=== PATIENT | female | born 1985 | race Caucasian/White ===

== ENCOUNTER 2024-02-03 21:49 | Inpatient (IN) | payer MEDICAID, OTHER ==
[~2024-02-03] VITALS: Ht 162.6 cm; Wt 100.9 kg
[2024-02-03 22:35] LABS: COVID AG,FIA SOURCE NASAL SWAB
[2024-02-03 22:49] LABS: BASOPHILS % (AUTO) 0.9 % (0.0-2.0); EOSINOPHILS % (AUTO) 1.9 % (1.0-6.0); HEMATOCRIT 38.1 % (36-46); LYMPHOCYTES # (AUTO) 3.4 K/uL (1.0-4.8); LYMPHOCYTES % (AUTO) 35.3 % (22.0-44.0); MEAN CORPUSCULAR HEMOGLOBIN 29.7 pg (26.0-34.0); MEAN CORPUSCULAR HGB CONC 34.1 G/dL (31.0-37.0); MEAN CORPUSCULAR VOLUME 87 fL (80-100); MONOCYTES # (AUTO) 0.8 K/uL (0.1-1.0); MONOCYTES % (AUTO) 8.2 % (2.0-9.0); NEUTROPHILS # (AUTO) 5.2 K/uL (1.8-7.7); NEUTROPHILS % (AUTO) 53.7 % (40.0-70.0); PLATELET COUNT (AUTO) 361 K/uL (150-450); RED BLOOD CELL COUNT(AUTO) 4.37 MIL/uL (4.00-5.20); RED CELL DISTRIBUTION WIDTH 12.9 % (11.5-14.5); WHITE BLOOD COUNT (AUTO) 9.6 K/uL (4.5-11.0)
[2024-02-03 22:53] LABS: SARS-COV2 (COVID) ANTIGEN,FIA Negative (Negative)
[2024-02-03 22:58] LABS: ANION GAP 6 mmol/L (8-16); CALCIUM, TOTAL 9.8 mg/dL (8.8-10.5); CARBON DIOXIDE 29 mmol/L (22-29); CHLORIDE 104 mmol/L (98-107); CREATININE 0.78 mg/dL (0.60-1.30); GLOMERULAR FILTR. RATE CALC > 60 mL/min (>60); GLUCOSE,RANDOM 104 mg/dL (70-110); POTASSIUM 3.7 mmol/L (3.5-5.1); SODIUM SERUM 139 mmol/L (136-145); UREA NITROGEN, BLOOD 10 mg/dL (7-18)
[2024-02-03 23:09] LABS: ALCOHOL, BLOOD (SERUM) < 3 mg/dL (0-10)
[2024-02-04 01:29] LABS: PH,URINE DRUG SCREEN 6.5 (5.0-8.0)
[2024-02-04 01:36] LABS: ALCOHOL, URINE DRUG SCREEN NEGATIVE (NEGATIVE); AMPHET/METH SCREEN,URINE NEGATIVE (NEGATIVE); BARBITURATE SCREEN, URINE NEGATIVE (NEGATIVE); BENZODIAZEPINES SCREEN,URINE NEGATIVE (NEGATIVE); CANNABINOID SCREEN,URINE NEGATIVE (NEGATIVE); COCAINE SCREEN,URINE NEGATIVE (NEGATIVE); METHADONE SCREEN, URINE NEGATIVE (NEGATIVE); OPIATE SCREEN,URINE NEGATIVE (NEGATIVE); PHENCYCLIDINE SCREEN,URINE NEGATIVE (NEGATIVE)
[2024-02-04] MEDS: LORazepam 2 MG TABLET PO PRN (22:14)
[2024-02-04] MEDS: HALOPERIDOL 5 MG TABLET PO PRN (22:14)
[2024-02-05 03:45] VITALS: BP 126/81; PULSE 85; RESP 18; TEMP 98.6; O2SAT 96
[2024-02-05] MEDS ORDERED: NICOTINE 14 MG/24 HOUR PATCH TD PRN (07:15)
[2024-02-05] MEDS ORDERED: IBUPROFEN 400 MG TABLET PO PRN (07:15)
[2024-02-05] MEDS ORDERED: LOPERAMIDE HCL 2 MG CAPSULE PO PRN (07:15)
[2024-02-05] MEDS ORDERED: DOCUSATE SODIUM 100 MG CAPSULE PO PRN (07:15)
[2024-02-05] MEDS ORDERED: ONDANSETRON HCL 4 MG TABLET PO PRN (07:15)
[2024-02-05] MEDS ORDERED: ACETAMINOPHEN 325 MG TABLET PO PRN (07:15)
[2024-02-05] MEDS ORDERED: ALBUTEROL SULFATE HFA 90 MCG/PUFF 8 GM INHALER IH PRN (07:15)
[2024-02-05] MEDS ORDERED: MAG HYDROX/ALUMINUM HYD/SIMETH ES 30 ML SUSPENSION UDCUP PO PRN (07:15)
[2024-02-05] MEDS ORDERED: MAGNESIUM HYDROXIDE SUSPENSION 30 ML UDCUP PO PRN (07:15)
[2024-02-05] MEDS ORDERED: CloNIDine HCL 0.1 MG TABLET PO PRN (07:15)
[2024-02-05] MEDS ORDERED: GuaiFENesin/D-METHORPHAN [SUGAR-FREE] 200-20MG/10 ML SYRUP UDCUP PO PRN (07:15)
[2024-02-05] MEDS ORDERED: PETROLATUM,WHITE 28 GM JELLY TP PRN (07:15)
[2024-02-05] MEDS: NYSTATIN/TRIAMCINOLONE 15 GM CREAM TP SCH (09:00)
[2024-02-05 09:23] VITALS: BP 91/49; PULSE 106; RESP 18; TEMP 97.8; O2SAT 94
[2024-02-05] MEDS: RisperiDONE 2 MG TABLET PO SCH (17:51)
[2024-02-05 20:49] VITALS: BP 132/91; PULSE 111; RESP 18; TEMP 98.1; O2SAT 97
[2024-02-05] MEDS: QUEtiapine FUMARATE 200 MG TABLET PO SCH (20:54)
[2024-02-06 08:24] LABS: APPEARANCE,URINE TURBID (CLEAR); BILIRUBIN,URINE NEGATIVE (NEGATIVE); COLOR,URINE ORANGE (YELLOW); GLUCOSE, URINE (UA) NEGATIVE (NEGATIVE); KETONES,URINE NEGATIVE (NEGATIVE); LEUKOCYTE ESTERASE ,URINE LARGE (NEGATIVE); NITRATE,URINE NEGATIVE (NEGATIVE); OCCULT BLOOD,URINE SMALL (NEGATIVE); PROTEIN,URINE TRACE mg/dL (NEGATIVE); SPECIFIC GRAVITIY, URINE 1.019 (1.003-1.030); UROBILINOGEN,URINE <=1.0 mg/dL (<=1.0)
[2024-02-06 08:28] VITALS: BP 107/52; PULSE 63; RESP 18; TEMP 98; O2SAT 96
[2024-02-06 08:30] LABS: ALCOHOL, URINE DRUG SCREEN NEGATIVE (NEGATIVE); AMPHET/METH SCREEN,URINE NEGATIVE (NEGATIVE); BARBITURATE SCREEN, URINE NEGATIVE (NEGATIVE); BENZODIAZEPINES SCREEN,URINE NEGATIVE (NEGATIVE); CANNABINOID SCREEN,URINE NEGATIVE (NEGATIVE); COCAINE SCREEN,URINE NEGATIVE (NEGATIVE); METHADONE SCREEN, URINE NEGATIVE (NEGATIVE); OPIATE SCREEN,URINE NEGATIVE (NEGATIVE); PHENCYCLIDINE SCREEN,URINE NEGATIVE (NEGATIVE)
[2024-02-06 08:30] LABS: HEMOGLOBIN A1C 5.5 % (3.8-5.6)
[2024-02-06 08:50] LABS: CHOL/HDL RATIO 4.5 (3.9-5.7); THYROID STIMULATING HORMONE 1.39 uIU/mL (0.36-3.74)
[2024-02-06 09:04] LABS: AMORPHOUS SEDIMENT,UR Many /LPF (None Seen); BACTERIA,URINE Many /HPF (None Seen); RBC,URINE 0-2 /HPF (0-2); SQUAMOUS EPITHELIAL CELL,UR Moderate /LPF (None Seen)
[2024-02-06] MEDS: CEPHALEXIN MONOHYDRATE 500 MG CAPSULE PO SCH (17:46)
[2024-02-06 20:13] VITALS: BP 126/71; PULSE 99; RESP 19; TEMP 97.9; O2SAT 97
[2024-02-07] MEDS: ZOLPIDEM TARTRATE 10 MG TABLET PO PRN (00:05)
[2024-02-07 08:33] VITALS: BP 113/70; PULSE 85; RESP 19; TEMP 97.9; O2SAT 97
[2024-02-07 20:28] VITALS: BP 123/77; PULSE 106; RESP 15; TEMP 98.1; O2SAT 95
[2024-02-08 08:08] VITALS: BP 137/82; PULSE 94; RESP 14; TEMP 97; O2SAT 97
[2024-02-08] MEDS ORDERED: RISP-32 PO (10:05)
[2024-02-08] MEDS ORDERED: QUET200T PO (10:07)
[2024-02-08] MEDS ORDERED: BENZOCAINE/MENTHOL/ZINC CL 20% 11.9 GM GEL TP PRN (11:00)
== END 2024-02-08 12:45 | disposition home or self-care (01) | DRG 750 ==
LOC: EMS 21:49 → B2S 02-04 18:20
PROVIDERS: ADMIT Psychiatry & Neurology Child & Adolescent Psychiatry; ATTEND Psychiatry & Neurology Child & Adolescent Psychiatry
DX: F20.9 Schizophrenia, unspecified (principal); R45.851 Suicidal ideations; F41.9 Anxiety disorder, unspecified; Z20.822 Contact with and (suspected) exposure to COVID-19; G47.00 Insomnia, unspecified; R00.0 Tachycardia, unspecified; E66.9 Obesity, unspecified; Z91.199 Patient's noncompliance with other medical treatment and regimen due to unspecified reason; Z88.8 Allergy status to other drugs, medicaments and biological substances; Z68.38 Body mass index [BMI] 38.0-38.9, adult
CPT/HCPCS: 80048; 80061; 80307; 81001; 83036; 84443; 84703; 85025; 87086; 87186; G0480

== ENCOUNTER 2024-04-03 12:03 | Inpatient (IN) | payer MEDICAID, OTHER ==
[~2024-04-03] VITALS: Ht 162.6 cm; Wt 98.6 kg
[~2024-04-03 12:03] MED LIST: QUET200T PO; RISP-32 PO
[2024-04-03 13:30] LABS: BASOPHILS % (AUTO) 0.4 % (0.0-2.0); EOSINOPHILS % (AUTO) 1.1 % (1.0-6.0); HEMATOCRIT 36.9 % (36-46); HEMOGLOBIN 12.3 g/dL (12.0-16.0); LYMPHOCYTES # (AUTO) 2.4 K/uL (1.0-4.8); LYMPHOCYTES % (AUTO) 22.7 % (22.0-44.0); MEAN CORPUSCULAR HEMOGLOBIN 29.2 pg (26.0-34.0); MEAN CORPUSCULAR HGB CONC 33.4 G/dL (31.0-37.0); MEAN CORPUSCULAR VOLUME 88 fL (80-100); MONOCYTES # (AUTO) 0.9 K/uL (0.1-1.0); MONOCYTES % (AUTO) 8.1 % (2.0-9.0); NEUTROPHILS # (AUTO) 7.1 K/uL (1.8-7.7); NEUTROPHILS % (AUTO) 67.7 % (40.0-70.0); PLATELET COUNT (AUTO) 343 K/uL (150-450); RED BLOOD CELL COUNT(AUTO) 4.21 MIL/uL (4.00-5.20); RED CELL DISTRIBUTION WIDTH 14.3 % (11.5-14.5); WHITE BLOOD COUNT (AUTO) 10.5 K/uL (4.5-11.0)
[2024-04-03 13:52] LABS: ANION GAP 8 mmol/L (8-16); CALCIUM, TOTAL 8.8 mg/dL (8.8-10.5); CARBON DIOXIDE 29 mmol/L (22-29); CHLORIDE 104 mmol/L (98-107); CREATININE 0.83 mg/dL (0.60-1.30); GLOMERULAR FILTR. RATE CALC > 60 mL/min (>60); GLUCOSE,RANDOM 104 mg/dL (70-110); SODIUM SERUM 141 mmol/L (136-145); UREA NITROGEN, BLOOD 3 mg/dL (7-18)
[2024-04-03 13:54] LABS: ALCOHOL, BLOOD (SERUM) < 3 mg/dL (0-10)
[2024-04-03] MEDS ORDERED: LORazepam 2 MG TABLET PO PRN (14:00)
[2024-04-03] MEDS ORDERED: ZOLPIDEM TARTRATE 10 MG TABLET PO PRN (14:00)
[2024-04-03] MEDS ORDERED: OLANZapine 5 MG RAPDIS TABLET PO PRN (14:00)
[2024-04-03 14:36] LABS: COVID AG,FIA SOURCE NASAL SWAB
[2024-04-03 15:04] LABS: SARS-COV2 (COVID) ANTIGEN,FIA Negative (Negative)
[2024-04-03 15:05] LABS: APPEARANCE,URINE CLEAR (CLEAR); BILIRUBIN,URINE NEGATIVE (NEGATIVE); COLOR,URINE YELLOW (YELLOW); GLUCOSE, URINE (UA) NEGATIVE (NEGATIVE); KETONES,URINE NEGATIVE (NEGATIVE); LEUKOCYTE ESTERASE ,URINE SMALL (NEGATIVE); NITRATE,URINE NEGATIVE (NEGATIVE); OCCULT BLOOD,URINE SMALL (NEGATIVE); PROTEIN,URINE TRACE mg/dL (NEGATIVE); SPECIFIC GRAVITIY, URINE 1.014 (1.003-1.030); UROBILINOGEN,URINE <=1.0 mg/dL (<=1.0)
[2024-04-03 15:13] LABS: ALCOHOL, URINE DRUG SCREEN NEGATIVE (NEGATIVE); AMPHET/METH SCREEN,URINE NEGATIVE (NEGATIVE); BARBITURATE SCREEN, URINE NEGATIVE (NEGATIVE); BENZODIAZEPINES SCREEN,URINE NEGATIVE (NEGATIVE); CANNABINOID SCREEN,URINE NEGATIVE (NEGATIVE); COCAINE SCREEN,URINE NEGATIVE (NEGATIVE); METHADONE SCREEN, URINE NEGATIVE (NEGATIVE); OPIATE SCREEN,URINE NEGATIVE (NEGATIVE); PHENCYCLIDINE SCREEN,URINE NEGATIVE (NEGATIVE)
[2024-04-03 15:33] LABS: BACTERIA,URINE Few /HPF (None Seen); RBC,URINE 0-2 /HPF (0-2); SQUAMOUS EPITHELIAL CELL,UR Moderate /LPF (None Seen)
[2024-04-03] MEDS ORDERED: BENZOCAINE/MENTHOL LOZENGE PO PRN (17:00)
[2024-04-03] MEDS ORDERED: DOCUSATE SODIUM 100 MG CAPSULE PO PRN (17:00)
[2024-04-03] MEDS ORDERED: IBUPROFEN 600 MG TABLET PO PRN (17:00)
[2024-04-03] MEDS ORDERED: MAGNESIUM HYDROXIDE SUSPENSION 30 ML UDCUP PO PRN (17:00)
[2024-04-03] MEDS ORDERED: BACITRACIN 28 GM OINTMENT TP PRN (17:00)
[2024-04-03] MEDS ORDERED: LOPERAMIDE HCL 2 MG CAPSULE PO PRN (17:00)
[2024-04-03] MEDS ORDERED: ACETAMINOPHEN 325 MG TABLET PO PRN (17:00)
[2024-04-03] MEDS ORDERED: CloNIDine HCL 0.1 MG TABLET PO PRN (17:00)
[2024-04-03] MEDS ORDERED: PETROLATUM,WHITE 28 GM JELLY TP PRN (17:00)
[2024-04-03] MEDS ORDERED: ONDANSETRON HCL 4 MG TABLET PO PRN (17:00)
[2024-04-03] MEDS: NYSTATIN 30 GM CREAM TP SCH (17:00)
[2024-04-03] MEDS ORDERED: ALBUTEROL SULFATE HFA 90 MCG/PUFF 8 GM INHALER IH PRN (17:00)
[2024-04-03] MEDS ORDERED: MAG HYDROX/ALUMINUM HYD/SIMETH ES 30 ML SUSPENSION UDCUP PO PRN (17:00)
[2024-04-03] MEDS ORDERED: OMEPRAZOLE 20 MG CAPSULE PO PRN (17:00)
[2024-04-03 17:05] VITALS: BP 131/80; PULSE 93; RESP 16; TEMP 98.3; O2SAT 98
[2024-04-03 20:59] VITALS: BP 115/72; PULSE 92; RESP 16; TEMP 97.7; O2SAT 98
[2024-04-04 08:47] VITALS: BP 125/73; PULSE 98; RESP 17; TEMP 97.1; O2SAT 96
[2024-04-04] MEDS: NITROFURANTOIN MONOHYD/M-CRYST 100 MG CAPSULE [MACROBID] PO SCH (10:44)
[2024-04-04] MEDS: NYSTATIN 30 GM CREAM TP SCH (10:44)
[2024-04-04 20:24] VITALS: BP 132/96; PULSE 95; RESP 18; TEMP 97.4; O2SAT 95
[2024-04-05] MEDS: DIVALPROEX SODIUM 500 MG DR TABLET PO SCH (08:56)
[2024-04-05] MEDS: RisperiDONE 3 MG TABLET PO SCH (08:56)
[2024-04-05] MEDS: LITHIUM CARBONATE 300 MG CAPSULE PO SCH (08:56)
[2024-04-05 09:50] VITALS: BP 139/81; RESP 16; TEMP 97.3; O2SAT 97
[2024-04-05 20:18] VITALS: BP 129/83; PULSE 60; RESP 16; TEMP 97.9; O2SAT 97
[2024-04-06 08:13] VITALS: BP 120/100; PULSE 78; RESP 18; TEMP 97.8; O2SAT 100
[2024-04-06 20:00] VITALS: BP 124/80; PULSE 123; RESP 17; TEMP 98.4; O2SAT 98
[2024-04-07 12:15] VITALS: BP 130/80; PULSE 77; RESP 18; TEMP 98.3; O2SAT 100
[2024-04-07] MEDS ORDERED: NITR-75 PO (14:15)
[2024-04-07] MEDS ORDERED: RISP3TAB77 PO (14:16)
[2024-04-07] MEDS ORDERED: LITH300C3 PO (14:16)
[2024-04-07] MEDS ORDERED: DIVA-112 PO (14:17)
== END 2024-04-07 16:00 | disposition home or self-care (01) | DRG 750 ==
LOC: EMS 12:03 → B2S 14:35 → EMS 16:17 → B2S 04-04 22:13
PROVIDERS: ADMIT Psychiatry & Neurology Psychiatry; ATTEND Psychiatry & Neurology Psychiatry
DX: F20.9 Schizophrenia, unspecified (principal); E66.9 Obesity, unspecified; F41.9 Anxiety disorder, unspecified; Z20.822 Contact with and (suspected) exposure to COVID-19; K59.00 Constipation, unspecified; G47.00 Insomnia, unspecified; N39.0 Urinary tract infection, site not specified; Z68.37 Body mass index [BMI] 37.0-37.9, adult
CPT/HCPCS: 80048; 80307; 81001; 85025; 99285; G0480

== ENCOUNTER 2024-04-28 15:28 | Inpatient (IN) | payer MEDICAID, OTHER ==
[~2024-04-28] VITALS: Ht 162.6 cm; Wt 73.6 kg
[~2024-04-28 15:28] MED LIST changes: +DIVA-112 PO; +LITH300C3 PO; +NITR-75 PO; -QUET200T PO; -RISP-32 PO; +RISP3TAB77 PO
[2024-04-28 16:04] LABS: BASOPHILS % (AUTO) 0.5 % (0.0-2.0); EOSINOPHILS % (AUTO) 0.3 % (1.0-6.0); HEMATOCRIT 40.8 % (36-46); HEMOGLOBIN 13.8 g/dL (12.0-16.0); LYMPHOCYTES # (AUTO) 1.7 K/uL (1.0-4.8); LYMPHOCYTES % (AUTO) 19.4 % (22.0-44.0); MEAN CORPUSCULAR HEMOGLOBIN 29.2 pg (26.0-34.0); MEAN CORPUSCULAR HGB CONC 33.9 G/dL (31.0-37.0); MEAN CORPUSCULAR VOLUME 86 fL (80-100); MONOCYTES # (AUTO) 1.2 K/uL (0.1-1.0); NEUTROPHILS # (AUTO) 5.8 K/uL (1.8-7.7); NEUTROPHILS % (AUTO) 65.8 % (40.0-70.0); PLATELET COUNT (AUTO) 334 K/uL (150-450); RED BLOOD CELL COUNT(AUTO) 4.74 MIL/uL (4.00-5.20); RED CELL DISTRIBUTION WIDTH 14.2 % (11.5-14.5); WHITE BLOOD COUNT (AUTO) 8.8 K/uL (4.5-11.0)
[2024-04-28 16:13] LABS: ANION GAP 12 mmol/L (8-16); CALCIUM, TOTAL 9.1 mg/dL (8.8-10.5); CARBON DIOXIDE 24 mmol/L (22-29); CHLORIDE 100 mmol/L (98-107); CREATININE 0.73 mg/dL (0.60-1.30); GLOMERULAR FILTR. RATE CALC > 60 mL/min (>60); GLUCOSE,RANDOM 97 mg/dL (70-110); SODIUM SERUM 136 mmol/L (136-145); UREA NITROGEN, BLOOD 7 mg/dL (7-18)
[2024-04-28] MEDS: OLANZapine 5 MG TABLET PO ONE (16:15)
[2024-04-28 16:21] LABS: ALCOHOL, BLOOD (SERUM) < 3 mg/dL (0-10)
[2024-04-28 20:03] LABS: COVID AG,FIA SOURCE NASAL SWAB
[2024-04-28] MEDS: ZOLPIDEM TARTRATE 10 MG TABLET PO PRN (20:51)
[2024-04-28] MEDS: OLANZapine 5 MG RAPDIS TABLET PO PRN (20:51)
[2024-04-28] MEDS: LORazepam 2 MG TABLET PO PRN (20:51)
[2024-04-28 21:04] LABS: SARS-COV2 (COVID) ANTIGEN,FIA Positive (Negative)
[2024-04-28] MEDS ORDERED: ACETAMINOPHEN 325 MG TABLET PO PRN (22:45)
[2024-04-28] MEDS ORDERED: GuaiFENesin/D-METHORPHAN [SUGAR-FREE] 200-20MG/10 ML SYRUP UDCUP PO PRN (22:45)
[2024-04-28] MEDS ORDERED: CloNIDine HCL 0.1 MG TABLET PO PRN (22:45)
[2024-04-28] MEDS ORDERED: NICOTINE 14 MG/24 HOUR PATCH TD PRN (22:45)
[2024-04-28] MEDS ORDERED: ALBUTEROL SULFATE HFA 90 MCG/PUFF 8 GM INHALER IH PRN (22:45)
[2024-04-28] MEDS ORDERED: ONDANSETRON 4 MG TABLET PO PRN (22:45)
[2024-04-28] MEDS ORDERED: IBUPROFEN 400 MG TABLET PO PRN (22:45)
[2024-04-28] MEDS ORDERED: MAG HYDROX/ALUMINUM HYD/SIMETH ES 30 ML SUSPENSION UDCUP PO PRN (22:45)
[2024-04-28] MEDS ORDERED: LOPERAMIDE HCL 2 MG CAPSULE PO PRN (22:45)
[2024-04-28] MEDS ORDERED: PETROLATUM,WHITE 28 GM JELLY TP PRN (22:45)
[2024-04-28] MEDS ORDERED: DOCUSATE SODIUM 100 MG CAPSULE PO PRN (22:45)
[2024-04-28] MEDS ORDERED: MAGNESIUM HYDROXIDE SUSPENSION 30 ML UDCUP PO PRN (22:45)
[2024-04-28 23:05] VITALS: BP 107/73; PULSE 113; RESP 19; TEMP 97.7; O2SAT 99
[2024-04-29 03:17] LABS: APPEARANCE,URINE CLEAR (CLEAR); BILIRUBIN,URINE NEGATIVE (NEGATIVE); COLOR,URINE LIGHT YELLOW (YELLOW); GLUCOSE, URINE (UA) NEGATIVE (NEGATIVE); KETONES,URINE NEGATIVE (NEGATIVE); LEUKOCYTE ESTERASE ,URINE MODERATE (NEGATIVE); NITRATE,URINE NEGATIVE (NEGATIVE); OCCULT BLOOD,URINE SMALL (NEGATIVE); PH,URINE 5.5 (5.0-8.0); PROTEIN,URINE NEGATIVE (NEGATIVE); SPECIFIC GRAVITIY, URINE 1.011 (1.003-1.030); UROBILINOGEN,URINE <=1.0 mg/dL (<=1.0)
[2024-04-29 03:19] VITALS: BP 111/65; PULSE 126; RESP 18; TEMP 97.9; O2SAT 94
[2024-04-29 03:26] LABS: BACTERIA,URINE Moderate /HPF (None Seen); SQUAMOUS EPITHELIAL CELL,UR Moderate /LPF (None Seen)
[2024-04-29 03:29] LABS: ALCOHOL, URINE DRUG SCREEN NEGATIVE (NEGATIVE); AMPHET/METH SCREEN,URINE NEGATIVE (NEGATIVE); BARBITURATE SCREEN, URINE NEGATIVE (NEGATIVE); BENZODIAZEPINES SCREEN,URINE NEGATIVE (NEGATIVE); CANNABINOID SCREEN,URINE NEGATIVE (NEGATIVE); COCAINE SCREEN,URINE NEGATIVE (NEGATIVE); METHADONE SCREEN, URINE NEGATIVE (NEGATIVE); OPIATE SCREEN,URINE NEGATIVE (NEGATIVE); PHENCYCLIDINE SCREEN,URINE NEGATIVE (NEGATIVE)
[2024-04-29 03:31] LABS: PH,URINE DRUG SCREEN 5.5 (5.0-8.0)
[2024-04-29 08:00] VITALS: RESP 18
[2024-04-29 08:30] VITALS: BP 119/56; PULSE 118; RESP 18; TEMP 98.5; O2SAT 95
[2024-04-29 12:00] VITALS: RESP 18
[2024-04-29 15:22] VITALS: BP 120/73; PULSE 107; RESP 18; TEMP 97.8; O2SAT 97
[2024-04-29 19:35] VITALS: BP 130/79; PULSE 105; RESP 18; TEMP 97.9; O2SAT 95
[2024-04-30 05:07] VITALS: BP 114/73; PULSE 90; RESP 18; TEMP 98; O2SAT 96
[2024-04-30 09:10] VITALS: BP 118/68; PULSE 103; RESP 18; TEMP 98.2; O2SAT 96
[2024-04-30] MEDS: NYSTATIN 30 GM CREAM TP SCH (12:53)
[2024-04-30 16:32] VITALS: BP 115/75; PULSE 109; RESP 18; TEMP 98.1; O2SAT 95
[2024-04-30 20:15] VITALS: BP 122/88; PULSE 96; RESP 18; TEMP 97.7; O2SAT 95
[2024-05-01 04:12] VITALS: BP 103/58; PULSE 99; RESP 18; TEMP 98.1; O2SAT 96
[2024-05-01 09:05] VITALS: BP 125/75; PULSE 101; RESP 19; TEMP 98.3; O2SAT 96
[2024-05-01] MEDS: RisperiDONE 3 MG TABLET PO SCH (11:41)
[2024-05-01] MEDS: DIVALPROEX SODIUM 500 MG ER TABLET PO SCH (12:59)
[2024-05-01] MEDS: LITHIUM CARBONATE 300 MG CAPSULE PO SCH (12:59)
[2024-05-01 14:01] LABS: COVID AG,FIA SOURCE NASAL SWAB
[2024-05-01 14:20] LABS: SARS-COV2 (COVID) ANTIGEN,FIA Negative (Negative)
[2024-05-01 16:00] VITALS: BP 116/72; PULSE 90; RESP 18; TEMP 98; O2SAT 96
[2024-05-01] MEDS ORDERED: HALOPERIDOL 10 MG TABLET PO SCH (21:00)
[2024-05-01] MEDS ORDERED: BENZTROPINE MESYLATE 2 MG TABLET PO SCH (21:00)
== END 2024-05-01 19:40 | disposition home or self-care (01) | DRG 137 ==
LOC: EMS 15:28 → EDH 18:54 → CANBEDREQ 22:19 → 6N 22:55
PROVIDERS: ADMIT Psychiatry & Neurology Psychiatry; ATTEND Psychiatry & Neurology Psychiatry
DX: U07.1 COVID-19 (principal); R45.851 Suicidal ideations; F20.9 Schizophrenia, unspecified; F31.9 Bipolar disorder, unspecified; B36.8 Other specified superficial mycoses; F41.9 Anxiety disorder, unspecified; N61.0 Mastitis without abscess; Z88.8 Allergy status to other drugs, medicaments and biological substances; Z79.899 Other long term (current) drug therapy; B36.9 Superficial mycosis, unspecified
CPT/HCPCS: 80048; 80307; 81001; 84443; 85025; 87086; 87186; 99285; G0480

== ENCOUNTER 2024-05-14 17:05 | Emergency (ER) | payer OTHER ==
[~2024-05-14] VITALS: Ht 162.6 cm; Wt 90.9 kg
[2024-05-14 17:15] VITALS: BP 126/78; PULSE 100; RESP 18; TEMP 98.2; O2SAT 99
== END 2024-05-15 00:42 | disposition left against medical advice (07) ==
LOC: EMS 17:07
DX: R44.0 Auditory hallucinations (principal); Z53.21 Procedure and treatment not carried out due to patient leaving prior to being seen by health care provider

== ENCOUNTER 2024-05-20 13:59 | Emergency (ER) | payer OTHER ==
[2024-05-20 16:04] LABS: BASOPHILS % (AUTO) 0.3 % (0.0-2.0); HEMATOCRIT 41.5 % (36-46); HEMOGLOBIN 13.7 g/dL (12.0-16.0); LYMPHOCYTES # (AUTO) 2.5 K/uL (1.0-4.8); LYMPHOCYTES % (AUTO) 34.3 % (22.0-44.0); MEAN CORPUSCULAR HEMOGLOBIN 28.5 pg (26.0-34.0); MEAN CORPUSCULAR HGB CONC 32.9 G/dL (31.0-37.0); MEAN CORPUSCULAR VOLUME 87 fL (80-100); MONOCYTES # (AUTO) 0.5 K/uL (0.1-1.0); MONOCYTES % (AUTO) 6.4 % (2.0-9.0); NEUTROPHILS # (AUTO) 4.2 K/uL (1.8-7.7); PLATELET COUNT (AUTO) 357 K/uL (150-450); RED CELL DISTRIBUTION WIDTH 14.7 % (11.5-14.5); WHITE BLOOD COUNT (AUTO) 7.2 K/uL (4.5-11.0)
[2024-05-20 16:05] LABS: COVID AG,FIA SOURCE NASAL SWAB
[2024-05-20] MEDS ORDERED: NYST30OI6 TP (16:11)
[2024-05-20 16:13] LABS: ANION GAP 12 mmol/L (8-16); CALCIUM, TOTAL 9.1 mg/dL (8.8-10.5); CARBON DIOXIDE 26 mmol/L (22-29); CHLORIDE 104 mmol/L (98-107); CREATININE 0.71 mg/dL (0.60-1.30); GLOMERULAR FILTR. RATE CALC > 60 mL/min (>60); GLUCOSE,RANDOM 96 mg/dL (70-110); SODIUM SERUM 142 mmol/L (136-145); UREA NITROGEN, BLOOD 7 mg/dL (7-18)
[2024-05-20 16:29] LABS: SARS-COV2 (COVID) ANTIGEN,FIA Negative (Negative)
[2024-05-20 16:41] LABS: ALCOHOL, BLOOD (SERUM) < 3 mg/dL (0-10)
== END 2024-05-20 16:52 | disposition home or self-care (01) ==
LOC: EMS 13:59
DX: B36.9 Superficial mycosis, unspecified (principal); R44.0 Auditory hallucinations; Z88.8 Allergy status to other drugs, medicaments and biological substances; Z91.048 Other nonmedicinal substance allergy status; Z20.822 Contact with and (suspected) exposure to COVID-19
CPT/HCPCS: 99283; 87426; 80048; 85025; 36415; G0480

== ENCOUNTER 2024-05-24 14:19 | Inpatient (IN) | payer OTHER ==
[~2024-05-24] VITALS: Ht 162.6 cm; Wt 95.0 kg
[~2024-05-24 14:19] MED LIST changes: -DIVA-112 PO; -LITH300C3 PO; -NITR-75 PO; +NYST30OI6 TP; -RISP3TAB77 PO
[2024-05-24 15:12] VITALS: O2SAT 98
[2024-05-24 15:29] LABS: BASOPHILS % (AUTO) 0.5 % (0.0-2.0); EOSINOPHILS % (AUTO) 0.7 % (1.0-6.0); HEMATOCRIT 43.3 % (36-46); HEMOGLOBIN 14.3 g/dL (12.0-16.0); LYMPHOCYTES # (AUTO) 2.9 K/uL (1.0-4.8); LYMPHOCYTES % (AUTO) 34.4 % (22.0-44.0); MEAN CORPUSCULAR HEMOGLOBIN 28.8 pg (26.0-34.0); MEAN CORPUSCULAR VOLUME 87 fL (80-100); MONOCYTES # (AUTO) 0.6 K/uL (0.1-1.0); MONOCYTES % (AUTO) 7.6 % (2.0-9.0); NEUTROPHILS # (AUTO) 4.7 K/uL (1.8-7.7); NEUTROPHILS % (AUTO) 56.8 % (40.0-70.0); PLATELET COUNT (AUTO) 359 K/uL (150-450); RED BLOOD CELL COUNT(AUTO) 4.96 MIL/uL (4.00-5.20); RED CELL DISTRIBUTION WIDTH 14.5 % (11.5-14.5); WHITE BLOOD COUNT (AUTO) 8.3 K/uL (4.5-11.0)
[2024-05-24 15:37] LABS: ANION GAP 9 mmol/L (8-16); CALCIUM, TOTAL 9.2 mg/dL (8.8-10.5); CARBON DIOXIDE 26 mmol/L (22-29); CHLORIDE 105 mmol/L (98-107); CREATININE 0.93 mg/dL (0.60-1.30); GLOMERULAR FILTR. RATE CALC > 60 mL/min (>60); GLUCOSE,RANDOM 98 mg/dL (70-110); SODIUM SERUM 140 mmol/L (136-145); UREA NITROGEN, BLOOD 7 mg/dL (7-18)
[2024-05-24 15:47] LABS: ALCOHOL, BLOOD (SERUM) < 3 mg/dL (0-10)
[2024-05-24 18:10] LABS: COVID AG,FIA SOURCE NASAL SWAB
[2024-05-24 18:42] LABS: SARS-COV2 (COVID) ANTIGEN,FIA Negative (Negative)
[2024-05-24] MEDS ORDERED: QUET50TA24 PO (19:43)
[2024-05-24] MEDS ORDERED: PALI9TAB15 PO (19:43)
[2024-05-24] MEDS ORDERED: QUET100T34 PO (19:43)
[2024-05-24] MEDS: LORazepam 2 MG TABLET PO ONE (19:45)
[2024-05-24] MEDS ORDERED: LORazepam 2 MG TABLET PO PRN (21:45)
[2024-05-24] MEDS ORDERED: OLANZapine 5 MG RAPDIS TABLET PO PRN (21:45)
[2024-05-24] MEDS: OLANZapine 10 MG TABLET PO ONE (22:11)
[2024-05-25 02:11] VITALS: BP 145/80; PULSE 105; RESP 18; TEMP 97.5; O2SAT 100
[2024-05-25 10:10] VITALS: BP 104/61; PULSE 97; RESP 18; TEMP 96.8; O2SAT 97
[2024-05-25 20:48] VITALS: BP 135/85; PULSE 82; RESP 18; TEMP 98.7; O2SAT 96
[2024-05-25] MEDS: ZOLPIDEM TARTRATE 10 MG TABLET PO PRN (20:52)
[2024-05-25] MEDS: PALIPERIDONE 9 MG ER TABLET PO SCH (20:52)
[2024-05-26] MEDS ORDERED: LOPERAMIDE HCL 2 MG CAPSULE PO PRN (06:00)
[2024-05-26] MEDS ORDERED: OMEPRAZOLE 20 MG CAPSULE PO PRN (06:00)
[2024-05-26] MEDS ORDERED: MAG HYDROX/ALUMINUM HYD/SIMETH ES 30 ML SUSPENSION UDCUP PO PRN (06:00)
[2024-05-26] MEDS ORDERED: BENZOCAINE/MENTHOL LOZENGE PO PRN (06:00)
[2024-05-26] MEDS ORDERED: DOCUSATE SODIUM 100 MG CAPSULE PO PRN (06:00)
[2024-05-26] MEDS ORDERED: ACETAMINOPHEN 325 MG TABLET PO PRN (06:00)
[2024-05-26] MEDS ORDERED: MAGNESIUM HYDROXIDE SUSPENSION 30 ML UDCUP PO PRN (06:00)
[2024-05-26] MEDS ORDERED: CloNIDine HCL 0.1 MG TABLET PO PRN (06:00)
[2024-05-26] MEDS ORDERED: BACITRACIN 28 GM OINTMENT TP PRN (06:00)
[2024-05-26] MEDS ORDERED: ALBUTEROL SULFATE HFA 90 MCG/PUFF 8 GM INHALER IH PRN (06:00)
[2024-05-26] MEDS ORDERED: IBUPROFEN 600 MG TABLET PO PRN (06:00)
[2024-05-26] MEDS ORDERED: ONDANSETRON 4 MG TABLET PO PRN (06:00)
[2024-05-26] MEDS ORDERED: PETROLATUM,WHITE 28 GM JELLY TP PRN (06:00)
[2024-05-26 09:10] VITALS: BP 106/56; PULSE 88; RESP 14; TEMP 98; O2SAT 97
== END 2024-05-26 16:15 | disposition home or self-care (01) | DRG 750 ==
LOC: EMS 14:19 → 3EI 23:05
PROVIDERS: ADMIT Psychiatry & Neurology Psychiatry; ATTEND Psychiatry & Neurology Psychiatry
DX: F20.9 Schizophrenia, unspecified (principal); R45.851 Suicidal ideations; F41.9 Anxiety disorder, unspecified; Z20.822 Contact with and (suspected) exposure to COVID-19; G47.00 Insomnia, unspecified; K59.00 Constipation, unspecified; E66.9 Obesity, unspecified; Z68.35 Body mass index [BMI] 35.0-35.9, adult
CPT/HCPCS: 80048; 84703; 85025; 87081; 99285; G0480

== ENCOUNTER 2024-05-27 19:07 | Emergency (ER) | payer OTHER ==
[~2024-05-27] VITALS: Ht 162.6 cm; Wt 95.0 kg
[2024-05-27 19:41] VITALS: TEMP 97.3
[2024-05-27 21:23] VITALS: BP 129/78; PULSE 104; RESP 18; O2SAT 98
== END 2024-05-27 21:43 | disposition home or self-care (01) ==
LOC: EMS 19:07
DX: F20.0 Paranoid schizophrenia (principal); F31.9 Bipolar disorder, unspecified; R07.9 Chest pain, unspecified; Z88.6 Allergy status to analgesic agent; Z88.8 Allergy status to other drugs, medicaments and biological substances; Z91.048 Other nonmedicinal substance allergy status
CPT/HCPCS: 93005; 99284; Z7502

== ENCOUNTER 2024-05-28 13:31 | Emergency (ER) | payer OTHER ==
[~2024-05-28] VITALS: Ht 162.6 cm; Wt 94.0 kg
[2024-05-28 14:16] VITALS: BP 121/79; PULSE 102; RESP 18; TEMP 97.7; O2SAT 97
[2024-05-28 15:29] LABS: BASOPHILS % (AUTO) 0.4 % (0.0-2.0); EOSINOPHILS % (AUTO) 1.4 % (1.0-6.0); HEMATOCRIT 39.1 % (36-46); LYMPHOCYTES # (AUTO) 3.2 K/uL (1.0-4.8); LYMPHOCYTES % (AUTO) 39.3 % (22.0-44.0); MEAN CORPUSCULAR HGB CONC 33.1 G/dL (31.0-37.0); MEAN CORPUSCULAR VOLUME 87 fL (80-100); MONOCYTES # (AUTO) 0.6 K/uL (0.1-1.0); MONOCYTES % (AUTO) 7.8 % (2.0-9.0); NEUTROPHILS # (AUTO) 4.2 K/uL (1.8-7.7); NEUTROPHILS % (AUTO) 51.1 % (40.0-70.0); PLATELET COUNT (AUTO) 287 K/uL (150-450); RED BLOOD CELL COUNT(AUTO) 4.47 MIL/uL (4.00-5.20); RED CELL DISTRIBUTION WIDTH 14.5 % (11.5-14.5); WHITE BLOOD COUNT (AUTO) 8.2 K/uL (4.5-11.0)
[2024-05-28 15:39] LABS: ANION GAP 12 mmol/L (8-16); CARBON DIOXIDE 24 mmol/L (22-29); CHLORIDE 105 mmol/L (98-107); CREATININE 0.68 mg/dL (0.60-1.30); GLOMERULAR FILTR. RATE CALC > 60 mL/min (>60); GLUCOSE,RANDOM 93 mg/dL (70-110); POTASSIUM 3.9 mmol/L (3.5-5.1); SODIUM SERUM 141 mmol/L (136-145); UREA NITROGEN, BLOOD 8 mg/dL (7-18)
[2024-05-28 15:45] LABS: ALANINE AMINOTRANSFERASE 19 U/L (12-78); ALBUMIN 3.7 g/dL (3.4-5.0); ALKALINE PHOSPHATASE 80 U/L (46-116); ASPARTATE AMINOTRANSFERASE 12 U/L (15-37); BILIRUBIN,TOTAL 0.3 mg/dL (0.1-1.0); TOTAL PROTEIN, SERUM 7.3 g/dL (6.4-8.2)
[2024-05-28 15:50] LABS: ALCOHOL, BLOOD (SERUM) < 3 mg/dL (0-10)
[2024-05-28] MEDS: LORazepam 1 MG TABLET PO ONE (16:25)
[2024-05-29] MEDS ORDERED: QUET50TA24 PO (17:52)
[2024-05-29] MEDS ORDERED: BENZ-247 PO (17:52)
[2024-05-29] MEDS ORDERED: QUET100T34 PO (17:52)
[2024-05-29] MEDS ORDERED: HALO20TA7 PO (17:52)
[2024-05-29] MEDS ORDERED: PALI9TAB15 PO (17:52)
== END 2024-05-28 16:56 | disposition home or self-care (01) ==
LOC: EMS 13:32
DX: F20.0 Paranoid schizophrenia (principal); F31.9 Bipolar disorder, unspecified; Z88.8 Allergy status to other drugs, medicaments and biological substances; Z91.048 Other nonmedicinal substance allergy status
CPT/HCPCS: 99284; 80048; 80076; 85025; 36415; G0480

== ENCOUNTER 2024-05-29 17:47 | Emergency (ER) | payer OTHER ==
[~2024-05-29] VITALS: Ht 165.1 cm; Wt 100.0 kg
[2024-05-29 17:49] VITALS: BP 124/84; PULSE 103; RESP 18; TEMP 98; O2SAT 98
[2024-05-29] MEDS ORDERED: QUET50TA24 PO (17:52)
[2024-05-29] MEDS ORDERED: BENZ-247 PO (17:52)
[2024-05-29] MEDS ORDERED: HALO20TA7 PO (17:52)
[2024-05-29] MEDS ORDERED: PALI9TAB15 PO (17:52)
[2024-05-29] MEDS ORDERED: QUET100T34 PO (17:52)
[2024-05-29 19:52] LABS: BASOPHILS % (AUTO) 0.4 % (0.0-2.0); EOSINOPHILS % (AUTO) 1.7 % (1.0-6.0); HEMATOCRIT 39.7 % (36-46); HEMOGLOBIN 13.2 g/dL (12.0-16.0); LYMPHOCYTES # (AUTO) 3.2 K/uL (1.0-4.8); LYMPHOCYTES % (AUTO) 36.9 % (22.0-44.0); MEAN CORPUSCULAR HGB CONC 33.3 G/dL (31.0-37.0); MEAN CORPUSCULAR VOLUME 87 fL (80-100); MONOCYTES # (AUTO) 0.7 K/uL (0.1-1.0); MONOCYTES % (AUTO) 7.8 % (2.0-9.0); NEUTROPHILS # (AUTO) 4.6 K/uL (1.8-7.7); NEUTROPHILS % (AUTO) 53.2 % (40.0-70.0); PLATELET COUNT (AUTO) 296 K/uL (150-450); RED BLOOD CELL COUNT(AUTO) 4.56 MIL/uL (4.00-5.20); RED CELL DISTRIBUTION WIDTH 14.6 % (11.5-14.5); WHITE BLOOD COUNT (AUTO) 8.7 K/uL (4.5-11.0)
[2024-05-29 20:00] LABS: ANION GAP 8 mmol/L (8-16); CALCIUM, TOTAL 9.2 mg/dL (8.8-10.5); CARBON DIOXIDE 28 mmol/L (22-29); CHLORIDE 104 mmol/L (98-107); CREATININE 0.71 mg/dL (0.60-1.30); GLOMERULAR FILTR. RATE CALC > 60 mL/min (>60); GLUCOSE,RANDOM 96 mg/dL (70-110); POTASSIUM 3.7 mmol/L (3.5-5.1); SODIUM SERUM 140 mmol/L (136-145); UREA NITROGEN, BLOOD 9 mg/dL (7-18)
[2024-05-29 20:03] LABS: ALCOHOL, BLOOD (SERUM) < 3 mg/dL (0-10)
== END 2024-05-29 23:00 | disposition left against medical advice (07) ==
LOC: EMS 17:47
DX: F41.9 Anxiety disorder, unspecified (principal); Z53.21 Procedure and treatment not carried out due to patient leaving prior to being seen by health care provider
CPT/HCPCS: 36415; 80048; 85025; G0480

== ENCOUNTER 2024-06-01 14:29 | Emergency (ER) | payer OTHER ==
[~2024-06-01] VITALS: Ht 162.6 cm; Wt 95.0 kg
[~2024-06-01 14:29] MED LIST changes: +BENZ-247 PO; +HALO20TA7 PO; -NYST30OI6 TP; +PALI9TAB15 PO; +QUET100T34 PO; +QUET50TA24 PO
[2024-06-01 14:34] VITALS: BP 143/76; PULSE 82; RESP 16; TEMP 98.2; O2SAT 98
[2024-06-01 15:01] LABS: BASOPHILS % (AUTO) 0.4 % (0.0-2.0); EOSINOPHILS % (AUTO) 1.5 % (1.0-6.0); HEMATOCRIT 41.4 % (36-46); HEMOGLOBIN 13.6 g/dL (12.0-16.0); LYMPHOCYTES # (AUTO) 2.9 K/uL (1.0-4.8); LYMPHOCYTES % (AUTO) 37.4 % (22.0-44.0); MEAN CORPUSCULAR HEMOGLOBIN 28.5 pg (26.0-34.0); MEAN CORPUSCULAR HGB CONC 32.9 G/dL (31.0-37.0); MEAN CORPUSCULAR VOLUME 87 fL (80-100); MONOCYTES # (AUTO) 0.6 K/uL (0.1-1.0); MONOCYTES % (AUTO) 7.4 % (2.0-9.0); NEUTROPHILS # (AUTO) 4.1 K/uL (1.8-7.7); NEUTROPHILS % (AUTO) 53.3 % (40.0-70.0); PLATELET COUNT (AUTO) 285 K/uL (150-450); RED BLOOD CELL COUNT(AUTO) 4.78 MIL/uL (4.00-5.20); RED CELL DISTRIBUTION WIDTH 14.3 % (11.5-14.5); WHITE BLOOD COUNT (AUTO) 7.7 K/uL (4.5-11.0)
[2024-06-01 15:09] LABS: ANION GAP 11 mmol/L (8-16); CALCIUM, TOTAL 9.1 mg/dL (8.8-10.5); CARBON DIOXIDE 23 mmol/L (22-29); CHLORIDE 104 mmol/L (98-107); CREATININE 0.73 mg/dL (0.60-1.30); GLOMERULAR FILTR. RATE CALC > 60 mL/min (>60); GLUCOSE,RANDOM 106 mg/dL (70-110); SODIUM SERUM 138 mmol/L (136-145); UREA NITROGEN, BLOOD 11 mg/dL (7-18)
[2024-06-01 15:14] LABS: ALCOHOL, BLOOD (SERUM) < 3 mg/dL (0-10)
[2024-06-01] MEDS: LORazepam 1 MG TABLET PO ONE (15:53)
== END 2024-06-01 16:35 | disposition home or self-care (01) ==
LOC: EMS 14:29
DX: F20.9 Schizophrenia, unspecified (principal); F41.9 Anxiety disorder, unspecified; F31.9 Bipolar disorder, unspecified; Z88.8 Allergy status to other drugs, medicaments and biological substances
CPT/HCPCS: 99284; 80048; 85025; G0480

== ENCOUNTER 2024-06-02 20:10 | Emergency (ER) | payer OTHER ==
[~2024-06-02] VITALS: Ht 160 cm; Wt 95.0 kg
[2024-06-02 20:20] VITALS: TEMP 98.1
[2024-06-02 20:34] LABS: COVID AG,FIA SOURCE NASAL SWAB
[2024-06-02 20:58] LABS: BASOPHILS % (AUTO) 0.4 % (0.0-2.0); EOSINOPHILS % (AUTO) 0.9 % (1.0-6.0); HEMATOCRIT 39.1 % (36-46); HEMOGLOBIN 12.9 g/dL (12.0-16.0); LYMPHOCYTES % (AUTO) 35.9 % (22.0-44.0); MEAN CORPUSCULAR HEMOGLOBIN 28.8 pg (26.0-34.0); MEAN CORPUSCULAR HGB CONC 33.1 G/dL (31.0-37.0); MEAN CORPUSCULAR VOLUME 87 fL (80-100); MONOCYTES # (AUTO) 0.7 K/uL (0.1-1.0); MONOCYTES % (AUTO) 7.9 % (2.0-9.0); NEUTROPHILS # (AUTO) 4.6 K/uL (1.8-7.7); NEUTROPHILS % (AUTO) 54.9 % (40.0-70.0); PLATELET COUNT (AUTO) 286 K/uL (150-450); RED BLOOD CELL COUNT(AUTO) 4.49 MIL/uL (4.00-5.20); RED CELL DISTRIBUTION WIDTH 14.7 % (11.5-14.5); WHITE BLOOD COUNT (AUTO) 8.4 K/uL (4.5-11.0)
[2024-06-02 20:59] LABS: SARS-COV2 (COVID) ANTIGEN,FIA Negative (Negative)
[2024-06-02 21:10] LABS: ANION GAP 9 mmol/L (8-16); CALCIUM, TOTAL 8.8 mg/dL (8.8-10.5); CARBON DIOXIDE 25 mmol/L (22-29); CHLORIDE 106 mmol/L (98-107); CREATININE 0.72 mg/dL (0.60-1.30); GLOMERULAR FILTR. RATE CALC > 60 mL/min (>60); GLUCOSE,RANDOM 144 mg/dL (70-110); POTASSIUM 3.8 mmol/L (3.5-5.1); SODIUM SERUM 140 mmol/L (136-145); UREA NITROGEN, BLOOD 7 mg/dL (7-18)
[2024-06-02 21:22] LABS: ALCOHOL, BLOOD (SERUM) < 3 mg/dL (0-10)
[2024-06-02 23:11] LABS: PH,URINE DRUG SCREEN 7.5 (5.0-8.0)
[2024-06-02 23:20] LABS: ALCOHOL, URINE DRUG SCREEN NEGATIVE (NEGATIVE); AMPHET/METH SCREEN,URINE NEGATIVE (NEGATIVE); BARBITURATE SCREEN, URINE NEGATIVE (NEGATIVE); BENZODIAZEPINES SCREEN,URINE NEGATIVE (NEGATIVE); CANNABINOID SCREEN,URINE NEGATIVE (NEGATIVE); COCAINE SCREEN,URINE NEGATIVE (NEGATIVE); METHADONE SCREEN, URINE NEGATIVE (NEGATIVE); OPIATE SCREEN,URINE NEGATIVE (NEGATIVE); PHENCYCLIDINE SCREEN,URINE NEGATIVE (NEGATIVE)
[2024-06-02] MEDS: OLANZapine 5 MG TABLET PO ONE (23:33)
[2024-06-02] MEDS: LORazepam 2 MG TABLET PO ONE (23:33)
[2024-06-03 01:16] VITALS: BP 130/72; PULSE 100; RESP 16; O2SAT 96
== END 2024-06-03 01:16 | disposition home or self-care (01) ==
LOC: EMS 20:10
DX: F20.0 Paranoid schizophrenia (principal); F31.9 Bipolar disorder, unspecified; F41.9 Anxiety disorder, unspecified; Z88.8 Allergy status to other drugs, medicaments and biological substances; Z20.822 Contact with and (suspected) exposure to COVID-19
CPT/HCPCS: 99284; 87426; 80048; 85025; 36415; 80307; G0480

== ENCOUNTER 2024-06-07 15:49 | Inpatient (IN) | payer MEDICAID, OTHER ==
[~2024-06-07] VITALS: Ht 162.6 cm; Wt 93.9 kg
[2024-06-07 16:25] LABS: ANION GAP 9 mmol/L (8-16); CALCIUM, TOTAL 9.6 mg/dL (8.8-10.5); CARBON DIOXIDE 24 mmol/L (22-29); CHLORIDE 104 mmol/L (98-107); CREATININE 0.69 mg/dL (0.60-1.30); GLOMERULAR FILTR. RATE CALC > 60 mL/min (>60); GLUCOSE,RANDOM 115 mg/dL (70-110); POTASSIUM 3.7 mmol/L (3.5-5.1); SODIUM SERUM 137 mmol/L (136-145); UREA NITROGEN, BLOOD 7 mg/dL (7-18)
[2024-06-07 16:26] LABS: HEMATOCRIT 39.7 % (36-46); MEAN CORPUSCULAR HEMOGLOBIN 28.4 pg (26.0-34.0); MEAN CORPUSCULAR HGB CONC 32.7 G/dL (31.0-37.0); MEAN CORPUSCULAR VOLUME 87 fL (80-100); PLATELET COUNT (AUTO) 330 K/uL (150-450); RED BLOOD CELL COUNT(AUTO) 4.56 MIL/uL (4.00-5.20); RED CELL DISTRIBUTION WIDTH 14.1 % (11.5-14.5); WHITE BLOOD COUNT (AUTO) 10.7 K/uL (4.5-11.0)
[2024-06-07 16:36] LABS: ALCOHOL, BLOOD (SERUM) < 3 mg/dL (0-10)
[2024-06-07 16:48] LABS: BAND NEUTROPHILS % (MANUAL) 2 % (0-5); LYMPHOCYTES % (MANUAL) 29 % (22-44); MONOCYTES % (MANUAL) 7 % (2-9); RBC MORPHOLOGY COMMENT NORMAL RBC MORPH; SEGMENTED NEUTROPHILS % 62 % (40-70); TOTAL CELLS COUNTED 100
[2024-06-07 17:19] LABS: COVID AG,FIA SOURCE NASAL SWAB
[2024-06-07 17:49] LABS: SARS-COV2 (COVID) ANTIGEN,FIA Negative (Negative)
[2024-06-07 18:09] LABS: ALCOHOL, URINE DRUG SCREEN NEGATIVE (NEGATIVE); AMPHET/METH SCREEN,URINE NEGATIVE (NEGATIVE); BARBITURATE SCREEN, URINE NEGATIVE (NEGATIVE); BENZODIAZEPINES SCREEN,URINE NEGATIVE (NEGATIVE); CANNABINOID SCREEN,URINE NEGATIVE (NEGATIVE); COCAINE SCREEN,URINE NEGATIVE (NEGATIVE); METHADONE SCREEN, URINE NEGATIVE (NEGATIVE); OPIATE SCREEN,URINE NEGATIVE (NEGATIVE); PHENCYCLIDINE SCREEN,URINE NEGATIVE (NEGATIVE)
[2024-06-08 02:47] VITALS: BP 141/91; PULSE 94; RESP 18; TEMP 98.2; O2SAT 97
[2024-06-08 09:04] VITALS: BP 127/58; PULSE 90; RESP 16; TEMP 97.6; O2SAT 97
[2024-06-08 09:55] VITALS: BP 127/58; PULSE 90; RESP 16; TEMP 97.6; O2SAT 97
[2024-06-08] MEDS: LORazepam 2 MG TABLET PO PRN (12:48)
[2024-06-08] MEDS: OLANZapine 5 MG RAPDIS TABLET PO PRN (12:48)
[2024-06-08] MEDS: PALIPERIDONE 9 MG ER TABLET PO SCH (21:31)
[2024-06-08] MEDS: ZOLPIDEM TARTRATE 10 MG TABLET PO PRN (21:32)
[2024-06-08 21:33] VITALS: BP 108/65; PULSE 98; RESP 18; TEMP 97.8; O2SAT 98
[2024-06-09 09:33] VITALS: BP 116/74; PULSE 93; RESP 18; TEMP 97.6; O2SAT 99
[2024-06-09 21:29] VITALS: BP 133/82; PULSE 62; RESP 18; TEMP 97.9; O2SAT 98
[2024-06-10 08:30] VITALS: BP 106/73; PULSE 97; RESP 18; TEMP 98.3; O2SAT 98
[2024-06-10 20:46] VITALS: BP 116/74; PULSE 108; RESP 18; TEMP 97.9; O2SAT 96
[2024-06-11 10:20] VITALS: BP 108/55; PULSE 104; RESP 18; TEMP 98.2; O2SAT 95
[2024-06-11] MEDS ORDERED: PALIPERIDONE PALMITATE 234 MG/1.5 ML SYRINGE IM SCH (18:00)
[2024-06-11 21:05] VITALS: BP 121/81; PULSE 102; RESP 18; TEMP 97.6; O2SAT 97
[2024-06-12 10:40] VITALS: BP 101/57; PULSE 102; RESP 16; TEMP 97; O2SAT 97
[2024-06-12] MEDS: PALIPERIDONE PALMITATE 234 MG/1.5 ML SYRINGE IM SCH (17:31)
[2024-06-12 21:00] VITALS: BP 132/87; PULSE 103; RESP 18; TEMP 97.5; O2SAT 98
[2024-06-13 10:23] VITALS: BP 113/63; PULSE 93; RESP 18; TEMP 98.2; O2SAT 97
[2024-06-13 21:11] VITALS: BP 136/89; PULSE 95; RESP 20; TEMP 97.8; O2SAT 95
[2024-06-13] MEDS: PALIPERIDONE 6 MG ER TABLET PO SCH (21:55)
[2024-06-14 09:34] VITALS: BP 95/51; PULSE 100; RESP 18; TEMP 98.1; O2SAT 97
[2024-06-14 21:04] VITALS: BP 123/81; PULSE 108; RESP 18; TEMP 98.3; O2SAT 95
[2024-06-15 08:58] VITALS: BP 114/72; PULSE 96; RESP 16; O2SAT 96
[2024-06-15 20:32] VITALS: BP 119/76; PULSE 103; RESP 18; TEMP 98.5; O2SAT 99
[2024-06-16 10:24] VITALS: BP 113/73; PULSE 93; RESP 14; TEMP 97.9; O2SAT 98
[2024-06-16 23:34] VITALS: BP 99/60; PULSE 89; RESP 18; TEMP 98.2; O2SAT 96
[2024-06-17 10:08] VITALS: BP 104/64; PULSE 86; RESP 19; TEMP 98; O2SAT 100
[2024-06-17] MEDS ORDERED: PALI6TAB15 PO (13:11)
[2024-06-17] MEDS ORDERED: PALI234D IM (13:34)
== END 2024-06-17 17:48 | disposition home or self-care (01) | DRG 750 ==
LOC: EMS 15:49 → 3EI 06-08 00:35
PROVIDERS: ADMIT Internal Medicine; ATTEND Psychiatry & Neurology Psychiatry
DX: F25.9 Schizoaffective disorder, unspecified (principal); R45.851 Suicidal ideations; K59.00 Constipation, unspecified; Z20.822 Contact with and (suspected) exposure to COVID-19; F41.9 Anxiety disorder, unspecified; G47.00 Insomnia, unspecified; F31.9 Bipolar disorder, unspecified; E66.9 Obesity, unspecified; Z68.35 Body mass index [BMI] 35.0-35.9, adult
CPT/HCPCS: 80048; 80307; 84703; 85025; 87081; 99285; G0480

== ENCOUNTER 2024-09-27 17:38 | Emergency (ER) | payer MEDICAID, OTHER ==
[~2024-09-27] VITALS: Ht 167.6 cm; Wt 84.1 kg
[~2024-09-27 17:38] MED LIST changes: -BENZ-247 PO; -HALO20TA7 PO; +PALI234D IM; +PALI6TAB15 PO; -PALI9TAB15 PO; -QUET100T34 PO; -QUET50TA24 PO
[2024-09-27 18:24] VITALS: BP 142/62; PULSE 92; RESP 17; TEMP 98.7; O2SAT 98
== END 2024-09-27 22:34 | disposition home or self-care (01) ==
LOC: EMS 17:38
DX: M54.2 Cervicalgia (principal); F41.9 Anxiety disorder, unspecified; F31.9 Bipolar disorder, unspecified; F25.9 Schizoaffective disorder, unspecified
CPT/HCPCS: 99282; 99283